=== PATIENT | female | born 1970 | race Caucasian/White ===

== ENCOUNTER 2016-12-30 07:34 | Day surgery (SDC) | payer OTHER ==
[~2016-12-30] VITALS: Ht 165.1 cm; Wt 55.8 kg
[~2016-12-30 07:34] MED LIST: CELEXA10 MG PO; FLEXERIL10 MG PO; GLUCOSAMINE-MS1 EAC3 PO; TYLENOL PM1 CAPLET PO; VITAMIN C1000 MG PO
[2016-12-30 08:14] LABS: HEMATOCRIT 33.6 % (36.0-46.0); MCV 94.4 FL (83-99)
[2016-12-30 08:30] VITALS: BP 99/64
[2016-12-30] MEDS ORDERED: TYLENOL WITH C1 EACH PO (10:15)
[2016-12-30 11:20] VITALS: BP 115/60
[2016-12-30 13:03] VITALS: BP 127/64
== END 2016-12-30 13:00 | disposition home or self-care (01) ==
LOC: SDC 07:34
PROVIDERS: Obstetrics & Gynecology
PROC: 0UB98ZZ Excision of Uterus, Via Natural or Artificial Opening Endoscopic (ICD-10-PCS; principal; 2016-12-30)
PROC: 0UDB8ZZ Extraction of Endometrium, Via Natural or Artificial Opening Endoscopic (ICD-10-PCS; principal; 2016-12-30)
PROC: 0U5B8ZZ Destruction of Endometrium, Via Natural or Artificial Opening Endoscopic (ICD-10-PCS; principal; 2016-12-30)
DX: N92.1 Excessive and frequent menstruation with irregular cycle (principal); D25.9 Leiomyoma of uterus, unspecified; F41.9 Anxiety disorder, unspecified; K21.9 Gastro-esophageal reflux disease without esophagitis
CPT/HCPCS: 85014; 85018; 88305; J0690; J1885; J3010